=== PATIENT | female | born 1980 | race Hispanic/Latino ===

== ENCOUNTER 2024-04-17 23:34 | Emergency (ER) | payer BC ==
[2024-04-18 00:57] LABS: Absolute Basophils 0.1 K/uL (0-0.5); Absolute Eosinophils 0.1 K/uL (0-0.5); Absolute Lymphocytes (CBC) 1.4 K/uL (0.7-4.9); Absolute Monocytes 0.6 K/uL (0.1-1.3); Absolute Neutrophil 5.8 K/uL (1.8-8.0); Basophils % 0.6 % (0-1.3); Eosinophils % 1.6 % (0-4.4); Hematocrit 34.1 % (36.0-45.0); Lymphocytes % 17.3 % (15.3-44.8); MCH 24.4 pg (27.0-35.0); MCHC 32.3 g/dL (32.0-36.0); MCV 75.4 fL (80-100); MPV 7.7 fL (7.6-11.3); Monocytes % 7.8 % (3.3-12.3); Neutrophils % 72.7 % (41.7-73.7); Nucleated Red Blood Cells % 0.1 % (0-0); Platelets 371 thou/uL (152-406); RBC Red Blood Cell Count 4.53 M/uL (3.86-4.86); Red Cell Distribution Width 15.2 % (12.1-15.2)
[2024-04-18 00:59] LABS: PT Prothrombin Time 11.6 SECONDS (9.4-12.5); Protime INR 1.04
[2024-04-18 01:06] LABS: Specific Gravity 1.008 (1.005-1.030); Sqamous Epithelial None Seen /HPF (None Seen); Urine Bacteria None Seen /HPF (<20); Urine Bilirubin NEGATIVE (Negative); Urine Blood Negative (Negative); Urine Clarity Clear (Clear); Urine Color Colorless (Yellow); Urine Culture Reflex Order NOT NEEDED; Urine Glucose NEGATIVE (Negative); Urine Ketones NEGATIVE (Negative); Urine Micro Reflex YN NO BILL MICROSCOPIC; Urine Mucus Slight /HPF (None Seen); Urine Nitrite NEGATIVE (Negative); Urine Protein NEGATIVE (Negative); Urine RBC <5 /HPF (None Seen); Urine Urobilinogen Normal (Normal); Urine WBC <5 /HPF (<5)
[2024-04-18 01:10] LABS: ALT/SGPT 23 U/L (13-56); AST/SGOT 18 U/L (15-37); Albumin 3.3 g/dL (3.4-5.0); Albumin/Globulin Ratio 0.8 (1.1-1.8); Alkaline Phosphatase 42 U/L (45-117); Anion Gap 6.5 mEq/L (5.0-15.0); BUN Blood Urea Nitrogen 12 mg/dL (7-18); Bicarbonate 24 mEq/L (21-32); Bilirubin Total 0.2 mg/dL (0.2-1.0); Globulin 3.9 g/dL (2.3-3.5); Glomerular Filtration Rate 100 ml/min (=/>90); Glucose Level 119 mg/dL (74-106); Potassium 3.5 mEq/L (3.5-5.1); Protein, Total 7.2 g/dL (6.4-8.2); Sodium Level 138 mEq/L (136-145)
[2024-04-18] MEDS ORDERED: ONDANSETRON 4 MG/2 ML VIAL ONE (01:21)
[2024-04-18] MEDS ORDERED: FAMOTIDINE 20 MG/2 ML VIAL IV ONE (01:21)
[2024-04-18] MEDS ORDERED: NA CHLORIDE 0.9% 1,000 ML ONE (01:21)
[2024-04-18 01:29] LABS: Bilirubin Direct < 0.2 mg/dL (0-0.2); Troponin High Sensitivity < 3.0 pg/mL (<58.9)
--- NOTE | 2024-04-18 02:56 | RAD REPORT ---
EXAM: CT Head Without Intravenous Contrast CLINICAL HISTORY: The patient is 43 years old and is Female; near syncope;Weakness TECHNIQUE: Axial computed tomography images of the head/brain without intravenous contrast. Sagittal and cor onal reformatted images were created and reviewed. This CT exam was performed using one or more of the following dose reduction techniques: automated exposure control, adjustment of the mA and/or kV according to patient size, and/or use of iterative reconstruction technique. COMPARISON: No relevant prior studies available. FINDINGS: BRAIN: Unremarkable. The mijares-white matter differentiation is preserved . No hemorrhage. No s ignificant white matter disease. No edema. No extra-axial fluid collections. VENTRICLES: Unremarkable. No ventriculomegaly. BONES/JOINTS: No acute fracture. SOFT TISSUES: Unremarkable. SINUSES: Unremarkable as visualized. No acute sinusitis. MASTOID AIR CELLS: Unremarkable as visualized. No mastoid effusion. ORBITS: Unremarkable as visualized. IMPRESSION: No acute intracranial findings. Electronically signed by: Keisha Mensah MD 04/18/2024 02:43 AM [facility] Due to temporary technical issues with the PACS/Validas reporting system, reports are being maria elena d by the in-house radiologist without review as a courtesy to ensure prompt reporting the interpreting radiologist is fully responsible for the content of the report. Transcribed Date/Time: 04/18/2024 2:56 AM
--- NOTE | 2024-04-18 02:56 | RAD REPORT ---
EXAM: CT Abdomen and Pelvis With Intravenous Contrast CLINICAL HISTORY: The patient is 43 years old and is Female; ABD PAIN TECHNIQUE: Axial computed tomography images of the abdomen and pelvis with intravenous contrast. Sagittal an d coronal reformatted images were created and reviewed. This CT exam was performed using one or more of the following dose reduction techniques: automated exposure control, adjustment of the mA a nd/or kV according to patient size, and/or use of iterative reconstruction technique. COMPARISON: No relevant prior studies available. FINDINGS: LUNG BASES: Unremarkable. No mass. No consolidation. MEDIASTINUM: A small hiatal hernia is present. ABDOMEN: LIVER: Unremarkable. No mass. GALLBLADDER AND BILE DUCTS: Calcified gallstone is present within the gallbladder. The gallbladde r is contracted. PANCREAS: No ductal dilation. No mass. SPLEEN: Unremarkable. ADRENALS: Unremarkable. No mass. KIDNEYS AND URETERS: Unremarkable. The kidneys enhance symmetrically. No obstructing renal or ure teral calculus is seen. No hydronephrosis or hydroureter. No perinephric fluid or stranding. STOMACH AND BOWEL: The stomach is minimally distended with food contents. The small bowel is rela tively normal in caliber. A moderate amount of stool is present throughout the colon. There is no mucosal thickening or evidence of obstruction. PELVIS: APPENDIX: The appendix is normal in caliber without surrounding inflammation. BLADDER: The bladder is decompressed. REPRODUCTIVE: A 1.3 cm left ovarian follicular cyst is present. No follow-up imaging is recommend ed. The uterus and right ovary are normal. ABDOMEN and PELVIS: INTRAPERITONEAL SPACE: Unremarkable. No free air. No significant fluid collection. BONES/JOINTS: No acute fracture. SOFT TISSUES: Bilateral breast implants are partially visualized. VASCULATURE: Calcified phleboliths are present within the pelvis. No abdominal aortic aneurysm. LYMPH NODES: Unremarkable. No enlarged lymph nodes. IMPRESSION: No acute findings on this contrasted CT of the abdomen and pelvis to explain the patient's symptoms . Electronically signed by: Keisha Mensah MD 04/18/2024 02:42 AM [facility] Due to temporary technical issues with the PACS/[employer] reporting system, reports are being maria elena d by the in-house radiologist without review as a courtesy to ensure prompt reporting the interpreting radiologist is fully responsible for the content of the report. Transcribed Date/Time: 04/18/2024 2:56 AM
--- NOTE | 2024-04-18 04:53 | EDPHYS ---
Physician Documentation [facility] Name: Vane Royal Age: 43 yrs Sex: Female : 1980 Arrival Date: 04/17/2024 Time: 23:34 Bed 16 Private MD: ED Physician dAama Kaiser HPI: 04/17 23:49 This 43 yrs old Female presents to ER via EMS with complaints of Weakness. cp 23:49 The patient presents to the emergency department with weakness of the entire body, cp generalized weakness, near syncope. Onset: The symptoms/episode began/occurred just prior to arrival, while at work. Patient's baseline: Neuro: alert and fully oriented, Motor: no deficits, Ambulation: walks without assistance, Speech: normal. 23:49 Associated signs and symptoms: Pertinent positives: chills, near-syncope, vaginal cp bleeding times 12 days, Pertinent negatives: altered mental status, dizziness, fever, neck stiffness, paresthesias, blurred vision. 23:49 Severity of symptoms: in the emergency department the symptoms have improved mildly. 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 - Infectious Disease History:: Denies. - Social history:: Smoking status: Patient denies any tobacco usage or history of. ROS: 23:55 Constitutional: Positive for chills, Negative for fever, poor PO intake, cp 23:55 Cardiovascular: Negative for chest pain, cp 23:55 Respiratory: Negative for cough, shortness of breath, 23:55 Abdomen/GI: Positive for abdominal pain, nausea, of the right lower quadrant and left lower quadrant, 04/18 04:55 Constitutional: Negative for fever, chills, and weight loss, positive for palpitations sp4 and generalized weakness Exam: 04/17 23:59 Constitutional: The patient appears in no acute distress, alert, awake, cp non-diaphoretic, non-toxic, well developed, well nourished, 23:59 Head/Face: Normocephalic, atraumatic. cp 23:59 Eyes: Periorbital structures: appear normal, Pupils: equal, round, and reactive to light and accomodation, Conjunctiva: normal, no exudate, no injection, Sclera: no appreciated abnormality, Lids and lashes: appear normal, bilaterally, 23:59 ENT: External ear(s): are unremarkable, Nose: is normal, Mouth: Lips: moist, Oral mucosa: pink and intact, moist, Posterior pharynx: Airway: no evidence of obstruction, patent, 23:59 Chest/axilla: Inspection: normal, 23:59 Cardiovascular: Rate: normal, Rhythm: regular, 23:59 Respiratory: the patient does not display signs of respiratory distress, Respirations: normal, no use of accessory muscles, labored breathing, is not present, Breath sounds: are clear throughout, no decreased breath sounds, no stridor, no wheezing, 23:59 Abdomen/GI: Inspection: abdomen appears normal, Bowel sounds: active, all quadrants, Palpation: soft, in all quadrants, mild abdominal tenderness, in the right lower quadrant and left lower quadrant, rebound tenderness, is not appreciated, involuntary guarding, is not appreciated, 23:59 Neuro: Orientation: to person, place \T\ time. Mentation: is normal, Cerebellar function: is grossly normal, Motor: moves all fours, no focal deficits, Sensation: no obvious gross deficits, 04/18 00:39 ECG was reviewed by the Attending Physician. cp Vital Signs: 04/17 23:36 BP 139 / 87; Pulse 73; Resp 16; Temp 98.4; Pulse Ox 99% ; Weight 70.31 kg; dd2 04/18 02:33 BP 119 / 82; Pulse 66; Resp 16; Pulse Ox 100% on R/A; dd2 03:00 BP 120 / 86; Pulse 74; Resp 16; Pulse Ox 100% on R/A; dd2 03:45 BP 126 / 76; Pulse 69; Resp 15; Pulse Ox 100% on R/A; dd2 04:24 BP 117 / 69; Pulse 74; Resp 16; Pulse Ox 100% on R/A; dd2 04:45 BP 014 / 6; dd2 04:55 BP 120 / 70; Pulse 75; Resp 16; Temp 98.2; Pulse Ox 100% on R/A; dd2 [place] Score: 00:45 Eye Response: spontaneous(4). Motor Response: obeys commands(6). Verbal Response: dd2 oriented(5). Total: 15. MDM: 04/17 23:36 Medical Screening Exam initiated cp 04/18 04:53 ED course: EXAM: XR Chest, 1 View CLINICAL HISTORY: The patient is 43 years old and is sp4 Female; weakness, near syncope TECHNIQUE: Frontal view of the chest. COMPARISON: No relevant prior studies available. FINDINGS: LUNGS: Unremarkable. No consolidation. PLEURAL SPACE: Unremarkable. No pneumothorax. HEART: Unremarkable. No cardiomegaly. MEDIASTINUM: Unremarkable. Normal mediastinal contour. BONES/JOINTS: Unremarkable. No acute fracture. UPPER ABDOMEN: Unremarkable as visualized. IMPRESSION: No acute cardiopulmonary process. . ED course: EXAM: CTAbdomen and Pelvis With Intravenous Contrast CLINICAL HISTORY: The patient is 43 years old and is Female; ABD PAIN TECHNIQUE: Axial computed tomography images of the abdomen and pelvis with intravenous contrast. Sagittal and coronal reformatted images were created and reviewed. This CT exam was performed using one or more of the following dose reduction techniques: automated exposure control, adjustment of the mA and/or kV according to patient size, and/or use of iterative reconstruction technique. COMPARISON: No relevant prior studies available. FINDINGS: LUNG BASES: Unremarkable. No mass. No consolidation. MEDIASTINUM: A small hiatal hernia is present. ABDOMEN: LIVER: Unremarkable. No mass. GALLBLADDER AND BILE DUCTS: Calcified gallstone is present within the gallbladder. The gallbladder is contracted. PANCREAS: No ductal dilation. No mass. SPLEEN: Unremarkable. ADRENALS: Unremarkable. No mass. KIDNEYS AND URETERS: Unremarkable. The kidneys enhance symmetrically. No obstructing renal or ureteral calculus is seen. No hydronephrosis or hydroureter. No perinephric fluid or stranding. STOMACH AND BOWEL: The stomach is minimally distended with food contents. The small bowel is relatively normal in caliber. A moderate amount of stool is present throughout the colon. There is no mucosal thickening or evidence of obstruction. PELVIS: APPENDIX: The appendix is normal in caliber without surrounding inflammation. BLADDER: The bladder is decompressed. REPRODUCTIVE: A 1.3 cm left ovarian follicular cyst is present. No follow-up imaging is recommended. The uterus and right ovary are normal. ABDOMEN and PELVIS: INTRAPERITONEAL SPACE: Unremarkable. No free air. No significant fluid collection. BONES/JOINTS: No acute fracture. SOFT TISSUES: Bilateral breast implants are partially visualized. VASCULATURE: Calcified phleboliths are present within the pelvis. No abdominal aortic aneurysm. LYMPH NODES: Unremarkable. No enlarged lymph nodes. IMPRESSION: No acute findings on this contrasted CT of the abdomen and pelvis to explain the patient's symptoms. . ED course: EXAM: CT Head Without Intravenous Contrast CLINICAL HISTORY: The patient is 43 years old and is Female; near syncope;Weakness TECHNIQUE: Axial computed tomography images of the head/brain without intravenous contrast. Sagittal and coronal reformatted images were created and reviewed. This CT exam was performed using one or more of the following dose reduction techniques: automated exposure control, adjustment of the mA and/or kV according to patient size, and/or use of iterative reconstruction technique. COMPARISON: No relevant prior studies available. FINDINGS: BRAIN: Unremarkable. The mijares-white matter differentiation is preserved . No hemorrhage. No significant white matter disease. No edema. No extra-axial fluid collections. VENTRICLES: Unremarkable. No ventriculomegaly. BONES/JOINTS: No acute fracture. SOFT TISSUES: Unremarkable. SINUSES: Unremarkable as visualized. No acute sinusitis. MASTOID AIR CELLS: Unremarkable as visualized. No mastoid effusion. ORBITS: Unremarkable as visualized. IMPRESSION: No acute intracranial findings. . 04:54 Data reviewed: vital signs, nurses notes, EMS record, lab test result(s), EKG, sp4 radiologic studies. Consideration of Admission/Observation Escalation of care including admission/observation considered. ED course: Workup today is remarkable for mild anemia with low MCV. Will recommend follow-up with LD TEACHER also recommend outpatient follow-up with cardiology. 04/17 23:54 Order name: Basic Metabolic Panel; Complete Time: 04:38 cp 04/17 23:54 Order name: CBC with Diff; Complete Time: cp 04/18 01:28 Interpretation: Normal except: HGB 11.0; HCT 34.1; MCV 75.4; MCH 24.4. cp 04/17 23:54 Order name: LFT's; Complete Time: 04:38 cp 04/17 23:54 Order name: Magnesium; Complete Time: 04:38 cp 04/17 23:54 Order name: PT-INR; Complete Time: : cp 04/17 23:54 Order name: Troponin HS; Complete Time: 04: cp 04/17 23:54 Order name: Ptt, Activated; Complete Time: 01:28 cp 04/17 23:54 Order name: Urinalysis W/Microscopic; Complete Time: :28 cp 04/17 23:54 Order name: Test, Serum; Complete Time: :28 cp 04/18 00:03 Order name: Glucose, Ancillary Testing; Complete Time: 00:41 EDMS 04/18 00:04 Order name: Glucose, Ancillary Testing EDMS 04/17 23:54 Order name: XRAY Chest (1 view) 04/18 00:42 Order name: CT Head Brain wo Cont; Complete Time: 04:38 cp 04/18 00:42 Order name: CT Abd/Pelvis - IV Contrast Only; Complete Time: 04:38 cp 04/17 23:54 Order name: EKG; Complete Time: 23:57 cp 04/17 23:54 Order name: Cardiac monitoring; Complete Time: 00:36 cp 04/17 23:54 Order name: EKG - Nurse/Tech; Complete Time: 00:36 cp 04/17 23:54 Order name: IV Saline Lock; Complete Time: 00:16 cp 04/17 23:54 Order name: Labs collected and sent; Complete Time: 00:36 cp 04/17 23:54 Order name: O2 Per Protocol; Complete Time: 00:16 cp 04/17 23:54 Order name: O2 Sat Monitoring; Complete Time: 00:16 cp EC:39 Rate is 80 beats/min. Rhythm is regular. MA interval is shortened at 110 msec. QRS cp interval is normal. QT interval is normal. T waves are Inverted in leads aVR, V2, V3. Interpreted by me. Reviewed by me. Administered Medications: 01:31 Drug: Ondansetron IVP 4 mg IVP once; over 2 minutes Route: IVP; Site: right antecubital;dd2 01:45 Follow up: Response: No adverse reaction dd2 01:31 Drug: Famotidine IVP 20 mg IVP once; dilute with 10 mL 0.9% NaCl; give over 2 minutes dd2 Route: IVP; Site: right antecubital; 01:45 Follow up: Response: No adverse reaction dd2 01:31 Drug: NS 0.9% IV 500 ml 500 ml IV at 1 bolus once; to be given as a bolus over 30 dd2 minutes Volume: 500 ml; Route: IV; Rate: 1 bolus; Site: right antecubital; 01:45 Follow up: Response: No adverse reaction dd2 02:30 Follow up: IV Status: Completed infusion; IV Intake: 1000ml dd2 04:45 Follow up: BP 014 / 6 dd2 Disposition: 04:50 Co-signature as Attending Physician, Adama Kaiser MD I agree with the assessment sp4 and plan of care. I reviewed the patient's care provided by Advanced Practice Provider \T\ agree w/ the diagnosis \T\ care plan. I personally saw the pt \T\ performed a substantive portion of the visit, incldng all aspects of the (History/Exam/Medical Decision Making). Disposition Summary: 04/18/24 04:52 Discharge Ordered Problem: new sp4 Symptoms: have improved sp4 Condition: Stable sp4 Diagnosis - Acute palpitations, generalized weakness, near syncopal episode sp4 Followup: sp4 - With: Luciano Steel MD - When: 7 - 10 days - Reason: Recheck today's complaints Discharge Instructions: - Discharge Summary Sheet sp4 - Palpitations, [id number] sp4 Forms: - Patient Portal Instructions sp4 Signatures: Dispatcher [employer] EDMS Reinaldo Guzamn PA PA cp Potepalov, Sergey, MD MD sp4 LEROY BOWER RN RN dd2
--- NOTE | 2024-04-18 04:53 | ER ---
Nurse's Notes [facility] Name: Vane Royal Age: 43 yrs Sex: Female : 1980 Arrival Date: 04/17/2024 Time: 23:34 Bed 16 Private MD: Diagnosis: Acute palpitations, generalized weakness, near syncopal episode Presentation: 04/17 23:36 Chief complaint: EMS states: PT WAS AT WORK AND FELT SHAKY AND WEAK. ALSO REPORTS SHE dd2 STARTED HER PERIOD 12 DAYS AGO AND HAS CONTINUED TO BLEED. Coronavirus screen: At this time, the client does not indicate any symptoms associated with coronavirus-19. Ebola Screen: No symptoms or risks identified at this time. No acute neurological deficit is noted. 23:36 Method Of Arrival: EMS: [facility] dd2 23:36 Initial Sepsis Screen: Does the patient meet any 2 criteria? No. Patient's initial dd2 sepsis screen is negative. Does the patient have a suspected source of infection? No. Patient's initial sepsis screen is negative. Risk Assessment: Do you want to hurt yourself or someone else? Patient reports no desire to harm self or others. Onset of symptoms was April 17, 2024. Care prior to arrival: IV initiated. 20 GA, in the right forearm. 23:36 Acuity: PHANI 3 dd2 Triage Assessment: 23:41 The onset of the patients symptoms was April 17, 2024 at 22:30. General: Appears in dd2 no apparent distress. Behavior is calm, cooperative, appropriate for age. Pain: Denies pain. EENT: No deficits noted. Neuro: No deficits noted. Level of Consciousness is awake, alert, obeys commands, Oriented to person, place, time, situation, Appropriate for age Distance Learning Coordinator are equal bilaterally Moves all extremities. Gait is steady, Speech is normal, Facial symmetry appears normal, Pupils are PERRLA, Intact Reports weakness. Cardiovascular: Reports palpitations, Heart tones S1 S2 Patient's skin is warm and dry. Respiratory: No deficits noted. Airway is patent Respiratory effort is even, unlabored, Respiratory pattern is regular, symmetrical. GI: No deficits noted. No signs and/or symptoms were reported involving the gastrointestinal system. : Reports vaginal bleeding that is bright red, moderate flow, since X12 DAYS. Derm: No deficits noted. No signs and/or symptoms reported regarding the dermatologic system. Musculoskeletal: No deficits noted. No signs and/or symptoms reported regarding the musculoskeletal system. 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 - Infectious Disease History:: Denies. - Social history:: Smoking status: Patient denies any tobacco usage or history of. Screenin/26 00:45 [facility] ED Fall Risk Assessment (Adult) History of falling in the last 3 months, dd2 including since admission No falls in past 3 months (0 pts) Confusion or Disorientation No (0 pts) Intoxicated or Sedated No (0 pts) Impaired Gait No (0 pts) Mobility Assist Device Used No (0 pt) Altered Elimination No (0 pt) Score/Fall Risk Level 0 - 2 = Low Risk. 00:45 Abuse screen: Denies threats or abuse. Nutritional screening: No deficits noted. dd2 Tuberculosis screening: No symptoms or risk factors identified. Assessment: 04/17 23:48 Reassessment: SEE TRIAGE ASSESSMENT FOR FULL ASSESSMENT. dd2 Vital Signs: 23:36 BP 139 / 87; Pulse 73; Resp 16; Temp 98.4; Pulse Ox 99% ; Weight 70.31 kg; dd2 04/18 02:33 BP 119 / 82; Pulse 66; Resp 16; Pulse Ox 100% on R/A; dd2 03:00 BP 120 / 86; Pulse 74; Resp 16; Pulse Ox 100% on R/A; dd2 03:45 BP 126 / 76; Pulse 69; Resp 15; Pulse Ox 100% on R/A; dd2 04:24 BP 117 / 69; Pulse 74; Resp 16; Pulse Ox 100% on R/A; dd2 04:45 BP 014 / 6; dd2 04:55 BP 120 / 70; Pulse 75; Resp 16; Temp 98.2; Pulse Ox 100% on R/A; dd2 Kareem Coma Score: 00:45 Eye Response: spontaneous(4). Motor Response: obeys commands(6). Verbal Response: dd2 oriented(5). Total: 15. ED Course: 12/25 23:35 Patient arrived in ED. gm2 23:36 [facility]inal[facility]zman [facility]. cp 23:36 Adama Kaiser MD is Attending Physician. cp 23:36 LEROY BOWER, BATSHEVA is Primary Nurse. dd2 23:41 Triage completed. dd2 23:41 Arm band placed on right wrist. Patient placed in an exam room, on a stretcher, on dd2 oxygen. 04/18 00:11 XRAY Chest (1 view) In Process Unspecified. EDMS 00:36 EKG done, by certified emergency vehicle technician. af3 00:45 Patient has correct armband on for positive identification. Bed in low position. Call dd2 light in reach. Side rails up X2. Client placed on continuous cardiac and pulse oximetry monitoring. NIBP monitoring applied. quality assurance monitor body on. Door closed. Noise minimized. Warm blanket given. Pillow given. Verbal reassurance given. 00:45 No provider procedures requiring assistance completed. Maintain EMS IV. Dressing dd2 intact. Good blood return noted. Site clean \T\ dry. Gauge \T\ site: 20G RT AC. Flushed with 10 mL NS. Patient maintains SpO2 saturation greater than 95% on room air. 01:05 Glucose, Ancillary Testing Sent. dd2 02:10 CT Head Brain wo Cont In Process Unspecified. EDMS 02:14 CT Abd/Pelvis - IV Contrast Only In Process Unspecified. EDMS 04:50 Luciano Steel MD is Referral Physician. sp4 04:55 Provided Education on: d/c educations and instructions. dd2 04:55 IV discontinued, intact, bleeding controlled, No redness/swelling at site. Pressure dd2 dressing applied. Administered Medications: 01:31 Drug: Ondansetron IVP 4 mg IVP once; over 2 minutes Route: IVP; Site: right antecubital;dd2 01:45 Follow up: Response: No adverse reaction dd2 01:31 Drug: Famotidine IVP 20 mg IVP once; dilute with 10 mL 0.9% NaCl; give over 2 minutes dd2 Route: IVP; Site: right antecubital; 01:45 Follow up: Response: No adverse reaction dd2 01:31 Drug: NS 0.9% IV 500 ml 500 ml IV at 1 bolus once; to be given as a bolus over 30 dd2 minutes Volume: 500 ml; Route: IV; Rate: 1 bolus; Site: right antecubital; 01:45 Follow up: Response: No adverse reaction dd2 02:30 Follow up: IV Status: Completed infusion; IV Intake: 1000ml dd2 04:45 Follow up: BP 014 / 6 dd2 Medication: 00:45 VIS not applicable for this client. dd2 Intake: 02:30 IV: 1000ml; Total: 1000ml. dd2 Outcome: 04:52 Discharge ordered by . luz elena 04:55 Discharged to home ambulatory, dd2 04:55 Condition: stable 04:55 Discharge instructions given to patient, Instructed on discharge instructions, follow up and referral plans. Demonstrated understanding of instructions, follow-up care, 05:02 Patient left the ED. dd2 Signatures: Dispatcher [employer] EDMS Reinaldo Guzman PA PA cp Potepalov, Sergey, MD MD sp4 Tejal Lambert 2 Kelsey Gonzalez 3 LEROY BOWER RN RN dd2
[2024-04-18 05:09] VITALS: O2SAT 100
[2024-04-18 05:14] VITALS: BP 120/70; TEMP 98.2
--- NOTE | 2024-04-18 06:21 | RAD REPORT ---
EXAM: XR Chest, 1 View CLINICAL HISTORY: The patient is 43 years old and is Female; weakness, near syncope TECHNIQUE: Frontal view of the chest. COMPARISON: No relevant prior studies available. FINDINGS: LUNGS: Unremarkable. No consolidation. PLEURAL SPACE: Unremarkable. No pneumothorax. HEART: Unremarkable. No cardiomegaly. MEDIASTINUM: Unremarkable. Normal mediastinal contour. BONES/JOINTS: Unremarkable. No acute fracture. UPPER ABDOMEN: Unremarkable as visualized. IMPRESSION: No acute cardiopulmonary process. Electronically signed by: Keisha Mensah MD 04/18/2024 12:24 AM [facility] Due to temporary technical issues with the PACS/[employer] reporting system, reports are being maria elena d by the in-house radiologist without review as a courtesy to ensure prompt reporting the interpreting radiologist is fully responsible for the content of the report. Transcribed Date/Time: 04/18/2024 6:20 AM
--- NOTE | 2024-04-19 13:39 | EKG ---
Test Date: 2024-04-18 Test Time: 00:33:03 Newspaper Writer: FARIBA MEASUREMENT RESULTS: Intervals: Rate: 80 CA: 110 QRSD: 90 QT: 386 QTc: 445 [place]: P: 45 CA: 110 QRS: 34 T: 51 INTERPRETIVE STATEMENTS: Sinus rhythm with short CA T wave abnormality, consider anterior ischemia Abnormal ECG Compared to ECG 04/01/2024 14:46:35 Short CA interval now present T-wave abnormality now present Possible ischemia now present Right-axis deviation no longer present Electronically Signed On 04-19-24 13:36:42 FINANCIAL ADVISER by Luciano Steel
--- NOTE | 2024-04-19 13:50 | EKG ---
Test Date: 2024-04-01 Test Time: 14:46:35 Field Reviewer: JUAN PABLO MEASUREMENT RESULTS: Intervals: Rate: 64 [place]: 164 QRSD: 72 QT: 434 QTc: 447 [place]: P: 57 [place]: 164 QRS: 105 T: 77 INTERPRETIVE STATEMENTS: Normal sinus rhythm Rightward axis Borderline ECG No previous ECG available for comparison Electronically Signed On 04-19-24 13:39:37 JEWEL BLOCKER AND SAWYER by Luciano Steel
== END 2024-04-18 05:02 | disposition home or self-care (01) ==
LOC: ER 23:34
DX: R55 Syncope and collapse (principal); R00.2 Palpitations; R53.1 Weakness; R10.30 Lower abdominal pain, unspecified
CPT/HCPCS: 96361; 93005; 85025; 81001; 80048; 36415; 83735; 84703; 85610; 82947; 80076; 85730; 84484; 70450; 74177; 71045; 96375; 96374; 99285; Q9967; J2405; J7030